=== PATIENT | female | born 1935 | race Caucasian/White ===

== ENCOUNTER 2018-02-08 17:47 | Inpatient (IN) | payer MEDICARE, OTHER ==
[2018-02-08] MEDS ORDERED: Fentanyl 100 MCG/2 ML VIAL ONE ×2 (17:52→20:10)
[2018-02-08 18:51] LABS: #Lymphocytes 2.5 thou/uL (1.20-3.40); #Monocytes 1.8 thou/uL (0.11-0.59); #Neutrophils 12.9 thou/uL (1.40-6.50); %Basophils 0.3 % (0.0-1.0); %Eosinophils 5.4 % (0.0-10.0); %Lymphocytes 13.8 % (21.0-51.0); %Monocytes 9.8 % (0.0-10.0); %Neutrophils 70.8 % (42.0-75.0); Hemoglobin 15.4 g/dL (12.0-16.0); Mean Corpuscular HGB CONC 32.7 g/dL (32.0-36.0); Mean Corpuscular Hemoglobin 28.4 pg (27.0-31.0); Mean Corpuscular Volume 86.9 fl (81.0-99.0); Mean Platelet Volume 6.9 fL (7.4-10.4); Platelet Count 270 thou/uL (130-400); RBC Distribution Width 13.5 % (11.5-14.5); Red Blood Cell (RBC) Count 5.42 mill/uL (4.20-5.40); White Blood Cell (WBC) Count 18.2 thou/uL (4.8-10.8)
[2018-02-08 19:11] LABS: Anion Gap 16 mmol/L (10-20); BUN (Urea Nitrogen) 18 mg/dL (9.8-20.1); Calc. Creatinine Clearance 0 mL/min (70-130); Calcium 9.9 mg/dL (7.8-10.44); Carbon Dioxide 21 mmol/L (23-31); Chloride 101 mmol/L (98-107); Estimated GFR-MDRD 31; Glucose 119 mg/dL (83-110); Potassium 4.3 mmol/L (3.5-5.1); Sodium 134 mmol/L (136-145)
[2018-02-08 19:17] LABS: CKMB 2.4 ng/mL (0-6.6); Troponin I 0.013 ng/mL (< 0.028)
--- NOTE | 2018-02-08 20:11 | RAD ---
RADIOGRAPH PELVIS ONE VIEW: Date: 02-08-18 Time: 6:23 a.m. History: 82-year-old female status post fall resulting in right hip pain. FINDINGS: There is a right femoral neck fracture, with at least a half-bone width superolateral displacement of the distal fragment. No dislocation. The pelvic ring appears to be grossly intact. IMPRESSION: Acute, traumatic, displaced, closed, transverse fracture of the right femoral neck. POS: MARICARMEN
--- NOTE | 2018-02-08 20:29 | RAD ---
RADIOGRAPH CHEST 1 VIEW: HISTORY: 82-year-old female for pre-operative evaluation. FINDINGS: There are no air space densities, pulmonary edema, pneumothorax, or cardiomegaly. The lateral costop hrenic angles are sharp. There are chronic appearing prominent interstitial markings. There is no int erval change overall since 07-17-11. IMPRESSION: 1. No acute cardiopulmonary findings. 2. Chronic pulmonary interstitial changes. blair POS: MARICARMEN
--- NOTE | 2018-02-08 20:51 | CON ---
DATE OF CONSULTATION: 02/08/2018 CHIEF COMPLAINT: Right hip pain. HISTORY OF PRESENT ILLNESS: Ms. Bowman is an 82-year-old female who was at work today at a [employer]. She tripped on the leg of a high chair and fell. She landed on her right side. She had imme diate pain in the hip. She was unable to ambulate. She was taken by EMS to the emergency department . X-rays revealed a displaced right femoral neck fracture. She was then comfortable in the emergenc y department. She has received pain medication. No other complaints or problems. She did not strik e her head or lose consciousness. PAST MEDICAL HISTORY: The patient reports having a recent cardiac murmur identified. This has not b een fully worked up. She had flu this season. No other chronic medical problems she reports. PAST SURGICAL HISTORY: No recent surgeries in the last several years. ALLERGIES: No known drug allergies. FAMILY MEDICAL HISTORY: Noncontributory. REVIEW OF SYSTEMS: Positive for right hip pain. PHYSICAL EXAMINATION: VITAL SIGNS: Stable. She is afebrile. She is normotensive. GENERAL: She is alert and oriented, lying supine, in no apparent distress. HEENT: Normocephalic, atraumatic. RESPIRATORY: Breathing comfortably. ABDOMEN: Soft, nontender, nondistended. MUSCULOSKELETAL: The patient's right leg is shortened and externally rotated posture. She has pain with hip motion. She is neurovascularly intact in the foot and ankle. She has a palpable dorsalis p eric pulse. IMAGES: X-rays of the pelvis demonstrated displaced right femoral neck fracture. IMPRESSION: Right displaced femoral neck fracture in an elderly female. PLAN: At this point, the patient will need hemiarthroplasty of the hip. We will plan for this tomor row. She will be n.p.o. at midnight. She will have pain control. She will have appropriate medical optimization prior to surgical intervention. She is in good health and very active, so it is unlike ly that she needs any further significant treatment prior to surgery. Risks have been reviewed as we ll surgical plan with the patient and her family. They want to proceed.
[2018-02-08 20:58] LABS: Bilirubin Negative (Negative); Blood, Urine Small (Negative); Clarity CLEAR (Clear); Glucose, Urine (Dipstick) Negative (Negative); Leukocyte Negative (Negative); Nitrite Negative (Negative); Protein, Urine (Dipstick) Trace mg/dL (Neg-Trace); Specific Gravity, Urine 1.009 (1.002-1.036); Urobilinogen 0.2 mg/dL (0.2-1.0); pH, Urine 7.5 (5.0-9.0)
[2018-02-08 21:00] LABS: Bacteria/HPF None Seen HPF (None Seen); Hyaline Casts/LPF 0-3 HYALINE CAST LPF (0-3 Hyaline); RBC/HPF None Seen HPF (0-3); Squamous Epithelial None Seen HPF (0-3); WBC/HPF None Seen HPF (0-3)
[2018-02-08] MEDS ORDERED: Morphine 4 MG/ML VIAL SLOW IVP PRN (21:00)
[2018-02-08] MEDS ORDERED: Ondansetron ODT 4 MG TAB PO PRN (21:00)
[2018-02-08] MEDS ORDERED: Ondansetron HCl/PF 4 MG/2 ML Vial IVP PRN (21:00)
[2018-02-08] MEDS ORDERED: Dextrose 50% Abboject 50 ML SYRINGE SLOW IVP PRN (21:00)
[2018-02-08] MEDS ORDERED: Dextrose 5% in Water 1,000 ML IV PRN (21:00)
[2018-02-08] MEDS ORDERED: hydrALAZINE 20 MG/ML VIAL SLOW IVP PRN (21:00)
[2018-02-08] MEDS ORDERED: traMADol HCl 50 MG TAB PO PRN (21:00)
[2018-02-08 21:11] VITALS: BMI 20.6
[2018-02-08] MEDS: Sodium Chloride 0.9% 1,000 ML IV SCH (22:07)
[2018-02-08] MEDS: Acetaminophen 500 MG TAB PO SCH (22:08)
[2018-02-08] MEDS: traMADol HCl 50 MG TAB PO SCH (22:08)
[2018-02-09] MEDS ORDERED: CEFAZOLIN/Water 2 GM/20 ML SYRINGE SLOW IVP SCH ×2 (00:01→09:00)
[2018-02-09] MEDS: Famotidine/PF 20 mg/2ml Vial SLOW IVP SCH ×2 (00:03→23:27)
--- NOTE | 2018-02-09 01:57 | HP ---
DATE OF ADMISSION: 02/08/2018 ATTENDING PHYSICIAN: Dr. Pascual. TRAUMA ACTIVATION: Not applicable. HISTORY OF PRESENT ILLNESS: Alessandra Bowman is an 82-year-old female, who presented to [facility] with a chief complaint of right hip pain status post mechanical fall. 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 The patient had immediate onset of right lower extremity pain and was unable to ambulate. She was evaluated in the emergency room and found to have an isolated hip fracture. She denies head trauma or loss of consciousness. Orthopedic Surgery was notified and Trauma Services was asked to admit. Upon my evaluation, the patient has a chief complaint of right hip pain, but states that it is tolerable at this time. ALLERGIES: PENICILLIN. HOME MEDICATIONS: Include sertraline 100 mg p.o. daily, lisinopril 10 mg p.o. daily, amlodipine 2.5 mg p.o. daily, propranolol extended release 120 mg p.o. at bedtime, simvastatin 20 mg p.o. at bedtime, aspirin 81 mg p.o. at bedtime, vitamin D3 p.o. daily, Flexeril 10 mg 1 tab p.o. p.r.n., Xanax 0.25 mg 1 tab p.o. p.r.n. PAST MEDICAL HISTORY: Significant for hypertension, hyperlipidemia, and spinal tumor status post chemotherapy in 2000. PAST SURGICAL HISTORY: Significant for nephrectomy, exploratory laparotomy associated with her cancer, appendectomy, cholecystectomy, and bilateral cataract surgery. SOCIAL HISTORY: The patient works at a daycare. Endorses occasional glass of wine. Denies tobacco or illicit drug use. FAMILY HISTORY: Noncontributory. REVIEW OF SYSTEMS: Ten-point review of systems is performed and negative except as indicated in the HPI. PHYSICAL EXAMINATION: VITAL SIGNS: Blood pressure 159/99, pulse 91, respirations 20, O2 sat 93% on room air, pain 5/10, temperature 98.1. GENERAL: Well developed elderly female, in no acute distress, resting in bed. HEAD: Normocephalic, atraumatic. EYES: Pupils are PERRL. Extraocular movements are intact. NECK: Supple. Trachea is midline. CHEST: Atraumatic, nontender to palpation, normal work of breathing, symmetric rise. LUNGS: Clear to auscultation bilaterally. CARDIOVASCULAR: Regular rate and rhythm, no obvious murmurs, rubs or gallops. GASTROINTESTINAL: Abdomen is soft, nontender, nondistended. Bowel sounds are positive. GENITOURINARY: Jones catheter is in place with clear yellow urine. MUSCULOSKELETAL: Back exam is reported as being within normal limits. Bilateral upper extremities within normal limits. Left lower extremity within normal limits. Right lower extremity held in the flexed position secondary to pain. Range of motion limited secondary to pain. She is neurovascularly intact distal side of her injury. Pulses are 2+ bilaterally. NEUROLOGIC: GCS is 15. No focal deficit is noted. LABORATORY FINDINGS: WBC 18.2, hemoglobin 15.4, hematocrit 47.1, platelet count 270. Sodium 134, potassium 4.3, chloride 101, carbon dioxide 21, BUN 18, creatinine 1.59, glucose 119. Troponin 0.013. EKG with sinus rhythm, read as having age indeterminate septal infarct and PACs. RADIOGRAPHIC FINDINGS: Official read is pending. Chest x-ray shows coarse interstitial markings, but no acute cardiopulmonary process. Pelvic x-ray demonstrates a right intertrochanteric hip fracture. ASSESSMENT: 1. Status post mechanical fall. 2. Right hip fracture. 3. Acute traumatic pain. 4. History of hypertension. 5. Chronic kidney disease, at baseline. The patient has a history of nephrectomy. PLAN: Admit to Trauma Services. Perioperative pain management. I have discussed this case with Dr. Lima from Orthopedic Surgery who plans for operative intervention tomorrow. Postoperative PT and OT. Inpatient rehabilitation consult as the patient is from home and ambulates independently typically. Gastritis and DVT prophylaxis as appropriate. Reconcile home medications. Plans for admission were discussed with the patient and family at bedside. All questions were answered at the time of this dictation. Trauma attending has been notified of admission. KATHIA
[2018-02-09] MEDS: traMADol HCl 50 MG TAB PO SCH ×4 (03:04→22:28)
[2018-02-09] MEDS: Acetaminophen 500 MG TAB PO SCH ×4 (03:04→22:28)
[2018-02-09 04:51] LABS: #Lymphocytes 1.6 thou/uL (1.20-3.40); #Monocytes 0.8 thou/uL (0.11-0.59); #Neutrophils 9.9 thou/uL (1.40-6.50); %Basophils 0.3 % (0.0-1.0); %Eosinophils 0.2 % (0.0-10.0); %Lymphocytes 12.8 % (21.0-51.0); %Monocytes 6.2 % (0.0-10.0); %Neutrophils 80.5 % (42.0-75.0); Hemoglobin 13.5 g/dL (12.0-16.0); Mean Corpuscular HGB CONC 32.7 g/dL (32.0-36.0); Mean Corpuscular Hemoglobin 28.8 pg (27.0-31.0); Mean Corpuscular Volume 88.1 fl (81.0-99.0); Mean Platelet Volume 7.3 fL (7.4-10.4); Platelet Count 235 thou/uL (130-400); RBC Distribution Width 13.2 % (11.5-14.5); Red Blood Cell (RBC) Count 4.68 mill/uL (4.20-5.40); White Blood Cell (WBC) Count 12.3 thou/uL (4.8-10.8)
[2018-02-09 05:10] LABS: Anion Gap 12 mmol/L (10-20); BUN (Urea Nitrogen) 17 mg/dL (9.8-20.1); Calc. Creatinine Clearance 29 mL/min (70-130); Calcium 9.3 mg/dL (7.8-10.44); Carbon Dioxide 24 mmol/L (23-31); Chloride 100 mmol/L (98-107); Estimated GFR-MDRD 40; Glucose 136 mg/dL (83-110); Magnesium 1.8 mg/dL (1.6-2.6); Phosphorus 3.8 mg/dL (2.3-4.7); Potassium 3.9 mmol/L (3.5-5.1); Sodium 132 mmol/L (136-145)
[2018-02-09] MEDS ORDERED: Magnesium 2 GM/NS 0.9% 100 ML 2 GM in Premix Bag 1 BAG IVPB SCH (06:15)
[2018-02-09] MEDS ORDERED: Metoprolol Tartrate 5 MG/5 ML VIAL IVP PRN (06:15)
[2018-02-09] MEDS ORDERED: Amiodarone In Dextrose 200 ML IVPB SCH (06:30)
[2018-02-09] MEDS ORDERED: Amiodarone HCl 150 MG, Admixture Fee 1 EACH in Dextrose 5% in Water 100 ML IVPB SCH ×3 (06:30)
[2018-02-09] MEDS ORDERED: Amiodarone HCl 450 MG, Admixture Fee 1 EACH in Dextrose 5% in Water 250 ML IVPB SCH ×3 (06:30)
[2018-02-09] MEDS ORDERED: Amiodarone HCl 150 MG in Dextrose 5% in Water 100 ML IVPB SCH ×2 (06:30)
[2018-02-09] MEDS ORDERED: Metoprolol Tartrate 25 MG TAB PO SCH (09:15)
[2018-02-09 11:00] LABS: ALT (SGPT) 11 U/L (8-55); AST (SGOT) 19 U/L (5-34); Alkaline Phosphatase 103 U/L (40-150); Bilirubin, Direct 0.4 mg/dL (0.1-0.3); Bilirubin, Total 0.9 mg/dL (0.2-1.2); Magnesium 2.6 mg/dL (1.6-2.6); Potassium 3.9 mmol/L (3.5-5.1); Protein, Total 7.2 g/dL (6.0-8.3)
--- NOTE | 2018-02-09 11:51 | CON ---
DATE OF CONSULTATION: 02/09/2018 HISTORY OF PRESENT ILLNESS: The patient is a pleasant 82-year-old woman with no known cardiac history who was recently noted to have an irregular heart rhythm. The patient is followed by her oncologist for a history of a spinal cord tumor. The patient was noted to have an irregular heart rhythm. The patient was sent for cardiac evaluation. The patient denies having any palpitations. The patient denies having any chest discomfort or dyspnea. The patient still works and does significant physical activity without any difficulty. She denies having any history of chest pain or dyspnea on exertion. The patient denies have any PND or orthopnea.She presented after falling with a hip fracture. PAST MEDICAL HISTORY: 1. Spinal cord tumor. 2. Hypertension. 3. History of nephrectomy. 4. Dyslipidemia. PAST SURGICAL HISTORY: Cholecystectomy, appendectomy, nephrectomy, exploratory laparotomy. FAMILY HISTORY: Strong family history of heart disease. MEDICATIONS ON ADMISSION: Sertraline 100 daily, lisinopril 10 daily, Norvasc 2.5 daily, Zocor 20 daily, propranolol 120 bedtime, aspirin 81 daily,and Xanax 0.25. REVIEW OF SYSTEMS: Ten-point system otherwise unremarkable. No history of easy bruising or bleeding, bright red blood per rectum or hematuria. PHYSICAL EXAMINATION: GENERAL: Thin woman in no acute distress. VITAL SIGNS: Blood pressure 135/85. NECK: Showed no jugular venous distention. LUNGS: Clear to auscultation. HEART: Irregular rate and rhythm, normal S1, S2, no murmurs. ABDOMEN: Nondistended. EXTREMITIES: Showed no edema. SKIN: Warm and dry. NEUROLOGIC: Nonfocal. VASCULAR: Radial pulses are 2+. LABORATORY: Sodium 132, potassium 3.9, chloride 100, bicarbonate 24, BUN 17, creatinine is 1.27. White blood cell count 12.3, hemoglobin 13.5, hematocrit 41.2, platelets are 235. Initial EKG revealed normal sinus rhythm with occasional PACs with poor R-wave progression. Follow up EKG revealed rapid atrial fibrillation with no acute ST-T wave changes. IMPRESSION: 1. Right hip fracture. 2. Paroxysmal atrial fibrillation. 3. Hypertension. 4. Dyslipidemia. 5. History of nephrectomy. This patient presents with paroxysmal atrial fibrillation and a hip fracture. From a cardiac standpoint,I would recommend she be placed on amiodarone. She was initially in sinus rhythm, and hopefully can convert back to normal sinus back. From a cardiac standpoint, she appears to be acceptable risk for undergoing hip surgery. Prior to her fall, she was able to walk at least 4 mets without difficulty. Would recommend she proceed with surgery as soon as her heart rate can be controlled. We will check the patient's echocardiogram during this hospitalization. The patient will need long-term anticoagulation. I will follow this patient with you through her hospitalization. KATHIA
--- NOTE | 2018-02-09 12:04 | PRG ---
DATE OF SERVICE: 02/09/2018 SUBJECTIVE: Ms. Bowman is an 82-year-old pleasant woman who is status post ground level fall yesterd ay. The patient was admitted with a normal sinus rhythm. Overnight developed acute paroxysmal atrial fibrillation with rapid ventricular response. The patien t denies any chest pain, dyspnea or syncope. She reports adequate pain control. PHYSICAL EXAMINATION: VITAL SIGNS: This morning includes blood pressure 156/94, pulse 127 and irregular. Respiratory rate is 15, temperature is 98.4 degrees Fahrenheit, oxygen saturation 93% on room air. HEENT: Reveals normocephalic and atraumatic. Pupils are equal, round, and reactive to light and acc ommodation. Extraocular muscles are intact bilaterally. She has no sclerae icterus present. NECK: She has no jugular venous distention noted. CARDIOVASCULAR: Heart reveals irregular rate with tachycardia. LUNGS: Clear to auscultation bilaterally. Breathing regular and unlabored. ABDOMEN: Soft, nontender, nondistended. EXTREMITIES: Reveals 2+ radial and pedal pulses bilaterally. She has no ankle edema present. LABORATORY DATA: Today includes a CBC with 12,200 white blood cells, hemoglobin and hematocrit stabl e at 15.5 and 41.2 respectively. Platelet count is normal at 235,000. Metabolic profile: Sodium 13 2, potassium is 3.9, chloride is 100, bicarbonate 24, BUN is 17, creatinine is 1.27, glucose 136. Ma gnesium is 1.8, phosphorus is 3.8. IMPRESSION: 1. Post-admission day #1, status post ground level fall with right hip fracture. 2. Acute paroxysmal atrial fibrillation with rapid ventricular response. 3. Acute hypokalemia. 4. Acute hypomagnesemia. PLAN: 1. Correct abnormal electrolytes. 2. The patient has been started on amiodarone. She was previously on propranolol at home as one of her medications. We will therefore start her on Lopressor starting at the low dose today at 12.5 mg p.o. and will hopefully increase this as her blood pressure tolerates. 3. A 2D echocardiogram today reveals a normal left ventricular function with ejection fraction of 40 -50%. 4. No wall motion abnormalities noted. 5. She is to be seen today by Cardiology and hopefully undergo repair of the right hip fracture. The above findings and plan discussed with the patient who indicates understanding of information giv en. I answered her questions.
[2018-02-09] MEDS ORDERED: Morphine 5 MG/ML SYRINGE SLOW IVP PRN ×2 (12:21→12:37)
[2018-02-09] MEDS: Sodium Chloride 0.9% 1,000 ML IV SCH ×2 (13:54→22:58)
[2018-02-09] MEDS ORDERED: Propofol 200 MG/20 ML VIAL ONE (14:36)
[2018-02-09] MEDS ORDERED: PHENYLEPHRINE-NS 100 MCG/ML 10 ML SYRINGE ONE (14:36)
[2018-02-09] MEDS ORDERED: Lidocaine 1% PF 5 ML VIAL ONE (14:36)
[2018-02-09] MEDS ORDERED: Ondansetron HCl/PF 4 MG/2 ML Vial ONE (14:36)
[2018-02-09] MEDS ORDERED: Glycopyrrolate 0.2 MG/ML 5 ML SYRINGE ONE (14:36)
[2018-02-09] MEDS ORDERED: CEFAZOLIN/Water 2 GM/20 ML SYRINGE ONE (18:20)
[2018-02-09] MEDS ORDERED: Fentanyl 250 MCG/5 ML VIAL ONE (18:55)
[2018-02-09] MEDS ORDERED: Promethazine HCl 25 MG/ML VIAL IM PRN (20:25)
[2018-02-09] MEDS ORDERED: Promethazine HCl 25 MG/ML VIAL SLOW IVP PRN (20:25)
[2018-02-09] MEDS ORDERED: Ondansetron HCl/PF 4 MG/2 ML Vial IVP PRN (20:25)
--- NOTE | 2018-02-09 20:37 | EKG ---
Test Reason : Blood Pressure : / mmHG Vent. Rate : 132 BPM Atrial Rate : 132 BPM P-R Int : 000 ms QRS Dur : 072 ms QT Int : 294 ms P-R-T Axes : 000 055 069 degrees QTc Int : 435 ms Atrial fibrillation with rapid ventricular response Nonspecific ST abnormality Abnormal ECG When compared with ECG of 31-AUG-2001 10:06, Atrial fibrillation has replaced Sinus rhythm Vent. rate has increased BY 46 BPM Questionable change in QRS duration Confirmed by NIESHA ROBERTS, DR. Johns ([id number]) on 02/09/2018 8:37:21 PM Referred By: MENDOZA Confirmed By:DR. Nat SCHERER MD
--- NOTE | 2018-02-09 20:54 | RAD ---
RADIOGRAPH RIGHT HIP 2 VIEWS: DATE: 02/09/18 TIME: 8:22 p.m. HISTORY: 82-year-old female with acute, traumatic right femoral neck displaced fracture. COMPARISON: Single view of pelvis of 02/08/18. FINDINGS: The femoral head and neck have been surgically resected, and replaced by metallic prostheses. The fem oral stem extends to the junction between the proximal and middle thirds of the femoral diaphysis. La teral skin jeevan. Subcutaneous emphysema. IMPRESSION: Status post right hip replacement arthroplasty. POS: MARICARMEN
--- NOTE | 2018-02-09 21:44 | OP ---
DATE OF OPERATION: 02/09/2018 OPERATION: Right hip bipolar hemiarthroplasty. PREOPERATIVE DIAGNOSIS: Right femoral neck fracture. POSTOPERATIVE DIAGNOSIS: Right femoral neck fracture. COMPLICATIONS: None. ESTIMATED BLOOD LOSS: 250 mL SURGEON: Cy Lima M.D. PROTECTIVE SERVICE SPECIALIST: Portillo Duckworth PA-C. ANESTHESIA: General. IMPLANTS: DePuy Synthes size 6 basic press-fit stem with a 47 mm bipolar shell, +5 femoral head. INDICATIONS: Ms. Bowman is an 82-year-old female who fell. She sustained a fracture of the right fe moral neck. She was indicated for hemiarthroplasty of the hip to restore function and promote early mobilization. Risks have been reviewed in detail. She has elected to proceed with the operation. DESCRIPTION OF PROCEDURE: Ms. Bowman was identified in the preoperative holding area. Her correct e xtremity was marked. She was carried to the operating room. She was positioned supine. General ane sthesia was induced. A multidisciplinary timeout was performed. The right lower extremity was prepp ed and draped in sterile fashion. We began the procedure with posterior approach to the hip. We dis sected down through the subcutaneous tissues to the fascia. The fascia was incised. At this point, we exposed the short external rotators of the hip. These were subperiosteally divided from the proxi mal femur. We performed a capsulotomy. At this point, we removed the broken femoral head and neck. We performed a new osteotomy. The soft tissues and bony fragments were cleared. We then prepared t he femur. After entering the intramedullary canal, we reamed up to a size 6 reamer, followed by broaching seque ntially to a size 6. We trialed off this a +5 femoral head was appropriate for stability and range o f motion. There was no evidence of instability. We accepted this trial and placed our final compone nts after irrigation. We thoroughly irrigated and then impacted our final components appropriately. Again, we tested stability. Next, we began closure. The capsule and external rotators were closed with a #5 Ethibond suture. We followed this with #2 Vicryl, followed by subcutaneous and skin closur e. A sterile dressing was applied. The patient was taken to the recovery room in good condition wit hout complication.
[2018-02-09] MEDS ORDERED: HYDROcodone/Acetaminophen 7.5/325 mg Tablet PO PRN ×2 (22:12)
[2018-02-09] MEDS ORDERED: Aspirin 81 mg Enteric Coated Tablet PO SCH (22:15)
[2018-02-09] MEDS: Atorvastatin Calcium 10 MG TAB PO SCH (22:30)
[2018-02-09] MEDS ORDERED: Famotidine 20 MG TAB PO SCH (22:45)
[2018-02-10] MEDS: traMADol HCl 50 MG TAB PO SCH ×4 (02:59→21:20)
[2018-02-10] MEDS: Acetaminophen 500 MG TAB PO SCH ×4 (02:59→21:17)
[2018-02-10] MEDS: CEFAZOLIN/Water 2 GM/20 ML SYRINGE SLOW IVP SCH ×2 (03:01→10:33)
--- NOTE | 2018-02-10 03:40 | PRG ---
DATE OF SERVICE: 02/10/2018 SUBJECTIVE: Patient is status post right bipolar hemiarthroplasty today. On my examination, the jose antonio rodríguez had just arrived back to the telemetry unit. The patient had an episode of paroxysmal atrial fi brillation and was placed on amiodarone. There were no issues during the operative procedure. Upon arrival to the telemetry unit, the patient's vital signs were stable. She was awake and would answer simple questions and follow very simple commands. She remained on the amiodarone drip. Her pain wa s controlled. OBJECTIVE: VITAL SIGNS: Stable. GENERAL: Patient is resting comfortably, awake and response appropriately and follow simple commands . LUNGS: Clear to auscultation. HEART: Irregularly irregular rhythm consistent with most likely still being in her atrial fibrillati on, though at the time of my exam, she was not hooked to her monitor yet. ABDOMEN: Soft, flat, and nontender. EXTREMITIES: Neurovascularly intact. Her postop dressing is clean, dry, and intact. ASSESSMENT: 1. Status post ground level fall. 2. Right hip fractures status post right hip hemiarthroplasty. PLAN: Will be to continue amiodarone per Cardiology, pain management, pulmonary toilet, gastritis, a nd mechanical DVT prophylaxis. Physical and occupational therapy postoperatively and we will continu e supportive care.
[2018-02-10 05:58] LABS: #Basophils 0.1 thou/uL (0.0-0.2); #Eosinphils 0.1 thou/uL (0.0-0.7); #Lymphocytes 2.1 thou/uL (1.20-3.40); #Monocytes 1.9 thou/uL (0.11-0.59); %Basophils 0.3 % (0.0-1.0); %Eosinophils 0.8 % (0.0-10.0); %Neutrophils 75.9 % (42.0-75.0); Hemoglobin 11.7 g/dL (12.0-16.0); Mean Corpuscular HGB CONC 32.7 g/dL (32.0-36.0); Mean Corpuscular Hemoglobin 29.1 pg (27.0-31.0); Mean Corpuscular Volume 88.8 fl (81.0-99.0); Mean Platelet Volume 7.3 fL (7.4-10.4); Platelet Count 208 thou/uL (130-400); RBC Distribution Width 13.5 % (11.5-14.5); Red Blood Cell (RBC) Count 4.01 mill/uL (4.20-5.40); White Blood Cell (WBC) Count 17.2 thou/uL (4.8-10.8)
[2018-02-10] MEDS ORDERED: Amlodipine 5 MG TAB PO SCH ×2 (09:00)
[2018-02-10] MEDS ORDERED: Lisinopril 10 MG TAB PO SCH (09:00)
[2018-02-10] MEDS ORDERED: Metoprolol Tartrate 25 MG TAB PO SCH (09:00)
[2018-02-10] MEDS ORDERED: Aspirin 81 mg Enteric Coated Tablet PO SCH (09:00)
[2018-02-10] MEDS: Metoprolol Tartrate 25 MG TAB PO SCH ×2 (09:30→21:20)
[2018-02-10 09:37] LABS: Anion Gap 11 mmol/L (10-20); BUN (Urea Nitrogen) 15 mg/dL (9.8-20.1); Calc. Creatinine Clearance 33 mL/min (70-130); Calcium 8.8 mg/dL (7.8-10.44); Carbon Dioxide 23 mmol/L (23-31); Chloride 103 mmol/L (98-107); Estimated GFR-MDRD 45; Glucose 91 mg/dL (83-110); Magnesium 1.8 mg/dL (1.6-2.6); Phosphorus 3.3 mg/dL (2.3-4.7); Potassium 4.3 mmol/L (3.5-5.1); Sodium 133 mmol/L (136-145)
[2018-02-10] MEDS: Sodium Chloride 0.9% 1,000 ML IV SCH (10:36)
[2018-02-10] MEDS ORDERED: Famotidine 20 MG TAB PO SCH (21:00)
--- NOTE | 2018-02-10 21:03 | PRG ---
DATE OF SERVICE: 02/10/2018 ATTENDING PHYSICIAN: Dr. Robby Castro. SUBJECTIVE: Ms. Bowman is an 82-year-old female who suffered a ground level fall on 02/08/2018. She was admitted for a right hip fracture. She is now postop day #1 status post open reduction internal fixation. Prior to the operation, the patient developed paroxysmal atrial fibrillation. She was tr ansferred to the telemetry unit. Cardiology was consulted. They recommended an amiodarone drip, whi ch she continues to be on. Since the operation, the patient has been stable on the floor with a good rate control. OBJECTIVE: VITAL SIGNS: Blood pressure 91/58, pulse 100, temperature 97.7, respirations 18, O2 sat 96% on room air. GENERAL APPEARANCE: Patient is an elderly adult female, in no acute distress. HEENT: Normocephalic and atraumatic. RESPIRATORY: Her breath sounds are clear to auscultation bilaterally. CARDIOVASCULAR: She has a regular rate. She is somewhat tachycardic. ABDOMEN: Soft, nontender, nondistended. EXTREMITIES: She is neurovascularly intact x4. LABORATORY DATA: Hematology: WBC 17.2, hemoglobin 11.7, hematocrit 35.6, platelets 208. Chemistry: Sodium 133, potassium 4.3, chloride 103, bicarbonate 23, BUN 15, creatinine 1.14, glucose 91, calci um 8.8, phosphorus 3.3, magnesium 1.8. IMAGING: There are no images to review today. ASSESSMENT: 1. Status post ground level fall. 2. Right hip fracture, status post open reduction and internal fixation. 3. Acute traumatic pain. 4. Paroxysmal atrial fibrillation. 5. History of hypertension. 6. Chronic kidney disease. PLAN: 1. The patient has been stable postoperatively. We will stop her amiodarone drip and start her on m etoprolol. Per Cardiology recommendations, the patient will begin metoprolol 25 mg b.i.d. 2. Continue to optimize pain control. Encourage pulmonary toileting. 3. The patient will need mobilization with PT and OT. Case management is following for possible dis charge to rehabilitation. 4. Transfer to the surgical floor today. This patient was seen and examined along with Dr. Robby Lewis on rounds who agrees with the assessm ent and plan.
[2018-02-10] MEDS: Apixaban 5 MG TAB PO SCH (21:17)
[2018-02-10] MEDS: Atorvastatin Calcium 10 MG TAB PO SCH (21:20)
[2018-02-10] MEDS ORDERED: Cyclobenzaprine 10 MG TAB PO PRN (21:56)
--- NOTE | 2018-02-10 22:25 | PRG ---
DATE OF SERVICE: 02/10/2018 SUBJECTIVE: The patient is postop day #1 from a right hip bipolar hemiarthroplasty, status post grou nd level fall. The patient had an episode of paroxysmal atrial fibrillation, which she was started o n amiodarone and spent her first days in the hospital on the telemetry unit. The patient is currentl y converted and rate controlled, was moved to the surgical floor. Currently, has no complaints. Her pain is controlled. She is tolerating a diet. OBJECTIVE: VITAL SIGNS: Temperature is 98.4, heart rate 96, blood pressure 122/77, respirations 18, and oxygen saturation is 97% on room air. GENERAL: The patient is resting comfortably without complaints. Breathing is nonlabored. HEART: Regular rate and rhythm. ABDOMEN: Soft, flat, nontender with active bowel sounds. EXTREMITIES: Neurovascularly intact. Postoperative dressing is clean, dry, and intact. ASSESSMENT: 1. Status post ground level fall. 2. Status post open reduction internal fixation of right hip fracture. PLAN: We will continue supportive care, physical and occupational therapy and await final placement decision.
[2018-02-11] MEDS: traMADol HCl 50 MG TAB PO SCH ×2 (02:52→08:39)
[2018-02-11] MEDS: Acetaminophen 500 MG TAB PO SCH ×3 (02:52→15:24)
[2018-02-11 05:16] LABS: Anion Gap 8 mmol/L (10-20); BUN (Urea Nitrogen) 18 mg/dL (9.8-20.1); Calc. Creatinine Clearance 28 mL/min (70-130); Calcium 8.5 mg/dL (7.8-10.44); Carbon Dioxide 27 mmol/L (23-31); Chloride 103 mmol/L (98-107); Estimated GFR-MDRD 38; Glucose 99 mg/dL (83-110); Magnesium 1.9 mg/dL (1.6-2.6); Phosphorus 3.1 mg/dL (2.3-4.7); Potassium 4.1 mmol/L (3.5-5.1); Sodium 134 mmol/L (136-145)
[2018-02-11 05:50] LABS: Band 6 % (5-11); Eosinophils 1 % (0-10); Hemoglobin 9.5 g/dL (12.0-16.0); Lymphocytes 14 % (21-51); MDiff Complete? YES; Mean Corpuscular HGB CONC 33.3 g/dL (32.0-36.0); Mean Corpuscular Hemoglobin 29.3 pg (27.0-31.0); Mean Platelet Volume 7.3 fL (7.4-10.4); Metamyelocyte 3 % (0-0); Monocytes 15 % (0-10); Myelocyte 2 % (0-0); Neutrophil 59 % (42-75); PLT Morphology Comment Appears Adequate; Platelet Count 174 thou/uL (130-400); RBC Distribution Width 13.6 % (11.5-14.5); RBC Morphology Normal; Red Blood Cell (RBC) Count 3.25 mill/uL (4.20-5.40); White Blood Cell (WBC) Count 12.9 thou/uL (4.8-10.8)
[2018-02-11] MEDS: Apixaban 5 MG TAB PO SCH (08:36)
[2018-02-11] MEDS: Metoprolol Tartrate 25 MG TAB PO SCH (08:36)
[2018-02-11] MEDS ORDERED: Magnesium 2 GM/NS 0.9% 100 ML 2 GM in Premix Bag 1 BAG IVPB SCH (09:00)
[2018-02-11] MEDS ORDERED: traMADol HCl 50 MG TAB PO SCH (09:00)
[2018-02-11] MEDS ORDERED: Metoprolol Tartrate 25 MG TAB PO SCH (09:00)
[2018-02-11 12:00] VITALS: BP 114/66; TEMP 97.6
== END 2018-02-11 16:36 | disposition swing bed (61) | DRG 470 ==
LOC: ERS 17:47 → SURG A 20:50 → 2SE 02-09 09:43 → SJJU 02-10 19:41
PROVIDERS: ADMIT Specialist; ATTEND Specialist
PROC: 0SRR0JA Replacement of Right Hip Joint, Femoral Surface with Synthetic Substitute, Uncemented, Open Approach (ICD-10-PCS; principal; 2018-02-09)
DX: S72.141A Displaced intertrochanteric fracture of right femur, initial encounter for closed fracture (principal); I48.0 Paroxysmal atrial fibrillation; E83.42 Hypomagnesemia; E78.5 Hyperlipidemia, unspecified; I10 Essential (primary) hypertension; W01.190A Fall on same level from slipping, tripping and stumbling with subsequent striking against furniture, initial encounter; Y93.F9 Activity, other caregiving; Y92.210 Daycare center as the place of occurrence of the external cause; Y99.0 Civilian activity done for income or pay; Z88.0 Allergy status to penicillin; Z79.82 Long term (current) use of aspirin; Z92.21 Personal history of antineoplastic chemotherapy; G89.11 Acute pain due to trauma; E87.6 Hypokalemia; Z90.5 Acquired absence of kidney; D49.7 Neoplasm of unspecified behavior of endocrine glands and other parts of nervous system
CPT/HCPCS: 36415; 36416; 51702; 71045; 72170; 80048; 80076; 81003; 81015; 82553; 83735; 84100; 84443; 84484; 85025; 93005; 93010; 93306; 96374; 96376; J2270; G0390; G8978-GP-CK; G8979-GP-CI; G8987-GO-CL; G8988-GO-CI; J0282; J2001; J2405; J2704; J3010; J3475; J3480; J7050; J7070; J7620

== ENCOUNTER 2020-07-12 13:58 | Inpatient (IN) | payer MEDICARE, OTHER ==
[~2020-07-12 13:58] MED LIST: Iopamidol-370 76% 500 ML 1 ML ONE
[2020-07-12 15:33] VITALS: BMI 22.8
[2020-07-12] MEDS ORDERED: Acetaminophen 325 MG TAB PO PRN (16:52)
[2020-07-12] MEDS ORDERED: Senokot S 8.6-50 MG TAB PO PRN (16:52)
[2020-07-12] MEDS ORDERED: Ondansetron ODT 4 MG TAB PO PRN (16:52)
--- NOTE | 2020-07-12 16:57 | PDOC.FPRHP ---
- History of Present Illness Chief Complaint: N/V/D History of Present Illness: Pt is a 84 y/o F with PMHx of Afib, HTN, Chronic hyponatremia,s/p l nephrectomy , CKD stage 3 to 4, remote hx of follicular lymphoma, HLD, neuropathy, anxiety/ depression, osteoporosis, generalized weakness who presents as a transfer from [facility] where she was staying in a swing bed after surgery for R femur shaft fracture, postoperatively she has been nonweightbearing. A few days ago patient started to have nausea and poor appetite and her labs showed increasing leukocytosis in the setting of anemia and thrombocytosis. Her bclx x2 was neg. Uclx grew proteus and gram negative bacteria. Incision site grew bacillus. Pt was started on meropenem for this. She had CXR and abdominal xray which were negative. 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 Today patient states that she does not feel well at all, that her nausea is worse and began having emesis today upon arriving to our hospital. She had not noticed any blood, it was the color of the ensure she was drinking. She was having abdominal pain in her lower part of her stomach. She noticed that she began to have diarrhea yesterday but was unsure how many episodes she had had. She admitted to some SOB but denied CP. - Allergies/Adverse Reactions Allergies Allergy/AdvReac Type Severity Reaction Status Date / Time amoxicillin Allergy Verified 06/30/20 00:59 Penicillins Allergy Verified 02/10/20 22:03 - Home Medications Medication Instructions Recorded Confirmed Type Cholecalciferol (Vitamin D3) 5,000 unit PO DAILY 02/09/18 07/12/20 History [Vitamin D3] Sertraline HCl 100 mg PO DAILY 02/09/18 07/12/20 History Atorvastatin Calcium [Lipitor] 10 mg PO HS tab 02/11/18 07/12/20 Rx Acetaminophen [Tylenol Regular 650 mg PO Q6HR tab 07/03/20 07/12/20 Rx Strength] Apixaban [Eliquis] 2.5 mg PO BID tab 07/03/20 07/12/20 Rx Cyclobenzaprine [Flexeril] 5 mg PO TIDPRN PRN tab 07/03/20 07/12/20 Rx Ferrous Sulfate [Feosol] 325 mg PO BID-WM tab 07/03/20 07/12/20 Rx Polyethylene Glycol 3350 [Miralax] 17 gm PO DAILY pk 07/03/20 07/12/20 Rx traMADol HCl [Ultram] 50 mg PO Q12HR tab 07/03/20 07/12/20 Rx Acetaminophen [Tylenol] 650 mg PO Q4HR PRN 07/12/20 07/12/20 History Famotidine [Pepcid] 20 mg PO DAILY 07/12/20 07/12/20 History Meropenem [Merrem] 500 mg IVPB Q12HR 07/12/20 07/12/20 History Metoprolol Tartrate [Lopressor] 25 mg PO BID 07/12/20 07/12/20 History Midodrine 5 mg PO Q8HR 07/12/20 07/12/20 History Ondansetron [Zofran ODT] 4 mg PO Q6HR PRN 07/12/20 07/12/20 History Sennosides/Docusate Sodium 1 tab PO BID PRN 07/12/20 07/12/20 History [Senokot S] - History PMHx: A-fib, HTN, chronic hyponatremia, orthostatic hypotension, iron deficiency anemia, follicular lymphoma PSHx: - nephrectomy at age 16, does not know why - cholecystectomy, appendectomy, ex lap FHx: Father: heart disease Social: - Denies smoking, drinking, drugs. - Review of Systems General: reports: fatigue. denies: fever/chills, weight/appetite/sleep changes , night sweats Eyes: denies: vision changes ENT: denies: nasal congestion, rhinorrhea Respiratory: reports: shortness of breath. denies: cough, congestion Cardiovascular: denies: chest pain, palpitation, edema, orthopnea Gastrointestinal: reports: nausea, vomiting, diarrhea, abdominal pain. denies: constipation Genitourinary: denies: incontinence, dysuria, polyuria Skin: denies: rashes, lesions, jaundice Musculoskeletal: denies: pain, tenderness, stiffness, swelling, arthritis/ arthralgias Neurological: denies: numbness, syncope, seizure Psychological: reports: anxiety. denies: depression - Vital signs BP:127/60 HR: 105 RR: 20 Tmax: 98.3 F Pox: 97% on RA Wt: 62 kg - Physical Exam Constitutional: other -Constitutional: acutely ill, appears clammy/diaphoretic and pale HEENT: normocephalic and atraumatic, no scleral icterus, grossly normal hearing , MMM, oropharynx clear -HEENT: pale conjunctiva Neck: supple Chest: no-tender to palpation, no lesions Heart: normal S1/S2, pulses present, no edema -Heart: irregular rate and rhythm, HR in 130s Lungs: CTAB, no rales/rhonchi, no wheezing Abdomen: soft, bowel sounds present, no masses/distention -Abdomen: tenderness to palpation in periumbilical area, no rebound tenderness, no peritoneal signs Musculoskeletal: normal structure -Musculoskeletal: R thigh to ankle brace, 2+ ankle edema on R, trace pitting edema on L Neurological: no focal deficit Skin: no rash/lesions, no jaundice -Skin: skin pale appearing Heme/Lymphatic: no purpura, no petechia, other Psychiatric: good judgment and insight, intact recent and remote memory -Psychiatric: appears anxious FMR H&P: Results - Labs Result Diagrams: 07/12/20 17:39 FMR H&P: A/P - Plan 84 yo F admitted from [facility] swing bed for acute leukocytosis, nausea, and overall worsening condition. ##Leukocytosis - Large rise in WBC over past 3-4 days from normal range to > 60. 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 - Recent R hip surgery w/ hip prosthesis in place: grew bacillus species - CBC, CMP, lactic acid, procal - Mg, Phos - Peripheral smear - consider further imaging of CT with contrast after improving kidney function, see plan below ##Gastritis - Pt presenting with Nausea, Vomiting, Abdominal pain, and Diarrhea - Lipase already performed, wnl - DDX: colitis, cdiff, acute GI bleed, mesenteric ischemia since pt's pain is out of proportion of exam, at this time not considering SBO due to patient's physical exam - zofran for nausea, morphine for pain - In setting of abx use, diarrhea, will order cdiff assay - Gastric occult blood - ARDEN performed ##A-fib, now with RVR - EKG, troponin - HR running in 130s to 150s - diltiazem drip - continue home meds, continuous tele ##URIEL on CKD - 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 Likely continue broad coverage but de- escalate to cefepime and vancomycin. . Dispo: admit to inpatient telemetry for workup. ELOS > 48H. FMR H&P: Upper Level - Pertinent history Transfer from [facility] by Dr. Newton. Patient was getting PT/OT due to R femoral fracture s/p repair and subsequent washout. Patient started feeling bad a few days ago so her PCP checked labs and noticed increasing WBC up to [address] over [address] Newton called Dr. Varela who thought past cancer history was unrelated to her WBC. Lamar talked to Dr. Bradford who recommended CT of abdomen/pelvis/chest but due to her history of 1 kidney, radiology wanted her GFR to be greater than 35 prior to performing a scan with contrast. On arrival to our facility, received page that pt was nauseous and vomiting. Patient was complaining of abdominal pain as well. Denied radiation of pain anywhere. Complained of feeling feverish and then chills. Denies dysuria, cough , vomiting blood, diarrhea. Rates her pain as severe. - Pertinent findings PEx: VS: see analysis intern note, afebrile, BP wnl. Gen: clammy, diaphoretic, pale HEENT: conjunctival pallor, PEERLA, redness beneath eyes bilaterally, no LAD, no thyromegaly, mucous membranes somewhat dry. Resp: CTAB, no adventitious sounds CV: irregular, tele w/ a-fib at rate 111 MSK: no midline tenderness along cervical/thoracic/lumbar spine Abd: moderate epigastric pain, normoactive BS Extremities: R thigh to ankle brace, 2+ ankle edema on R, trace pitting edema on L Psych: appears distressed, hx of anxiety - Plan Date/Time: 07/12/20 1657 84 yo F admitted from [facility] swing bed for acute leukocytosis, nausea, and overall worsening condition: Leukocytosis Pallor - Large rise in WBC over past 3-4 days from normal range to > 60. 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 Nausea, Vomiting, Abdominal pain - Gastric occult blood - appeared brown in color but this may be due to ensure shake pt drank earlier today. - other possibility to consider is mesenteric ischemia since pt's pain is out of proportion of exam. Abdomen was not distended but SBO not excluded given patient's extensive abdominal surgical history. KUB two days ago was normal - zofran for nausea - morphine for pain - if tolerating PO, may continue tramadol she was taking at swing bed URIEL vs URIEL on CKD - LR at 150 mL/hr - trend creatinine and hopefully tomorrow can order scan w/ contrast - if creatinine does not respond in next few days, consider CT scan without contrast to obtain information Chronic conditions: A-fib: continue home meds, continuous tele HTN: continue home meds but caution in setting of orthostasis Orthostatic hypotension: home meds Chronic hyponatremia: trend BMPs Hx of follicular lymphoma Hx of iron deficiency anemia: trend CBCs Code: DNR Fluids: LR at 125 mL/hr VTE PPx: already on eliquis GI PPx: pantoprazole IV Abx: came from facility on meropenem. Likely continue broad coverage but de- escalate to cefepime and vancomycin. Will discuss this choice w/ attending. Dispo: admit to inpatient telemetry for workup. ELOS > 48H. ILety, PGY2, have evaluated this patient and agree with findings/ plan as outlined by analysis intern resident. Pertinent changes/additions are listed here. Addendum - Attending - Attending Attestation Date/Time: 07/12/202031 I personally evaluated the patient and discussed the management with Dr. Meade and Dr Clinton. I agree with the History, Examination, Assessment and Plan documented above with any addition or exceptions noted below. Since her arrival she has also developed AFib with RVR. IV Fluid boilus and Diltiazem initiated. On exam I find that her abdominal pain is out of proportion to her exam, mild peritoneal sigs such as pain with bumping the bed, and gently shaking her belly. And these fingins along with leukocytosis, and elevated lactate have me concerned for a mesenteric artery occlusion. My DDx also include peptic ulcer perforation, colitis, ileus, and SBO. I personally discuss the situation with the radiologist, Dr Lamar noyola the patient's daughter Lena, who communicated on behalf of her two siblings. I am not of the opinion hat Mrs. Bowman has the cognitive capacity to give informed consent for a CTA and possible surgery base don my conversation with her. Lena understands and believes her mother would want to have the CTA to know what the diagnosis is, and then consider surgery thereafter. Lena did confirm the patients desire for DNR code status.
[2020-07-12] MEDS ORDERED: Morphine 2 MG/ML VIAL SLOW IVP SCH (17:00)
[2020-07-12] MEDS ORDERED: Ondansetron PF 4 MG/2 ML Vial IVP PRN (17:08)
[2020-07-12] MEDS ORDERED: Lactated Ringer's 1,000 ML IV SCH ×2 (17:15→18:30)
[2020-07-12 17:57] LABS: Hemoglobin 11.6 g/dL (12.0-16.0); Mean Corpuscular HGB CONC 30.4 g/dL (32.0-36.0); Mean Corpuscular Hemoglobin 28.1 pg (27.0-31.0); Mean Corpuscular Volume 92.4 fL (78.0-98.0); Platelet Count 832 thou/uL (130-400); RBC Distribution Width 15.1 % (11.5-14.5); Red Blood Cell (RBC) Count 4.13 mill/uL (4.20-5.40); White Blood Cell (WBC) Count 69.4 thou/uL (4.8-10.8)
[2020-07-12 18:14] LABS: Anisocytosis SLIGHT = 6-15 cells (100X) (0-5/hpf); Band 6 % (5-11); Burr Cells SLIGHT = 2-5 cells (100X) (0-1/hpf); Lymphocytes 1 % (21-51); MDiff Complete? YES; Monocytes 9 % (0-10); Neutrophil 84 % (42-75); Platelet Morphology Comment Appears Increased; Polychromasia SLIGHT = 2-3 cells (100X) (0-2/hpf); Reflex for Review?? YES; Toxic Granulation SLIGHT; Vacuoles MODERATE
[2020-07-12] MEDS ORDERED: Morphine 4 MG/ML VIAL SLOW IVP PRN (18:25)
--- NOTE | 2020-07-12 18:50 | RAD ---
ONE VIEW CHEST: 07/12/20 HISTORY: Possible infection. Leukocytosis. COMPARISON: 07/10/20. Cardiac silhouette and pulmonary vasculature are within normal limits. Mild chronic lung changes are seen. No new area of consolidation or pleural fluid is identified. Vascular calcifications again seen in the thoracic aorta. No interval change from prior study. IMPRESSION: Stable chest without an acute cardiopulmonary process. POS: ANGELAC
[2020-07-12] MEDS ORDERED: Diltiazem 125 MG in Sodium Chloride 0.9% 100 ML IVPB SCH (19:00)
[2020-07-12 19:56] LABS: Troponin I 0.015 ng/mL (< 0.028)
[2020-07-12 20:28] LABS: Phosphorus 4.7 mg/dL (2.3-4.7)
[2020-07-12] MEDS: Morphine 2 MG/ML VIAL SLOW IVP PRN (20:57)
[2020-07-12] MEDS: Apixaban 2.5 MG TAB PO SCH (20:58)
[2020-07-12] MEDS: Metoprolol Tartrate 50 MG TAB PO SCH (20:58)
[2020-07-12] MEDS: Midodrine HCl 5 MG TAB PO SCH (20:58)
[2020-07-12] MEDS ORDERED: Meropenem 500 MG VIAL IVPB SCH (21:00)
[2020-07-12] MEDS ORDERED: Famotidine 20 MG TAB PO SCH (21:00)
--- NOTE | 2020-07-12 22:19 | CT ---
CT arteriogram abdomen and pelvis with IV contrast and 3-D imaging HISTORY: Abdominal pain. COMPARISON: 06/25/2011. FINDINGS: Minimal right pleural fluid. Mild dependent bibasilar lung atelectasis. Reflux of fluid in the stomach into the lower esophagus. Small amount of free fluid throughout the abdomen and pelvis. Peripheral branching gas density is present within the left liver lobe portal veins. Small pocket of gas also within the main portal vein. There is a small irregular hyperdense focus within the medial segment left liver lobe which appears to be due to right IV contrast through the recanalized umbilica l vein. The portal vein is not expanded with clot. Visceral arteries of the abdomen are patent. There is calcification at the origin of the left renal a rtery. Mild narrowing at the upper superior mesenteric artery with good flow peripherally. The right kidney is surgically absent. Common duct measures up to 0.8 cm. Gallbladder not visible. Possibly surgically absent. Biliary diste ntion likely related to chronic gallbladder absence. Urinary bladder is incompletely distended. Metallic spray artifact emanates from right hip prosthesis . There is prominent circumferential wall thickening and hyper enhancement of the mucosa involving the entirety of the colon and rectum. Gas distended loops of small bowel within the upper mid abdomen are present with extensive gas within the rivera of these abnormal loops. No free air within the abdomen. Prominent degenerative changes throughout the lumbar spine. IMPRESSION : Portal venous gas with pneumatosis of dilated small bowel within the anterior mid abdomen. Presumed i schemia.. 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 Abnormal appearance of the colon favored to represent infectious colitis. Minimal right pleural fluid. Status post right nephrectomy. Mild distention of the biliary system favored to be related to chronic absence of the gallbladder. Findings were called to Dr. Ventura at 2209 hours. Code CR.
[2020-07-12] MEDS: Meropenem 500 MG in Sodium Chloride 0.9% 100 ML IVPB SCH (22:27)
[2020-07-12] MEDS: Lactated Ringer's 1,000 ML IV SCH (22:27)
--- NOTE | 2020-07-12 23:08 | PDOC.EVN ---
Event Note - Event Note Event Note: CT revealed portal venous gas with pneumatosis of dilated small bowel within anterior mid abdomen, presumed ischemia. Mild stenosis of the proximal superior mesenteric artery but no thrombosis. Abnormal appearance of the colon favored to represent infectious colitis. Dr. Ventura spoke with Dr. Donovan about the case for him to evaluate if she is a surgical candidate.
--- NOTE | 2020-07-12 23:42 | PDOC.BPN ---
- Brief Progress Note Reviewed the CT Angio with Dr Hernández. Discussed findings with Alessandra, and her daughter, Lena, and Dr Jimenez of Gen Surgery. Alessandra is an operative candidate. However, Alessandra feels strongly about not being on a ventilator and wants to see family. She is not willing to have surgery and understands that this means certain in a matter of hours to days. Her daughter confirms that Alessandra has expressed her desire to not be on a ventilator in the past. She is at peace about her not having surgery. We will continue therapy for what we can treat such as the colitis with antibiotics, and dehydration with IV fluids. We will control pain with morphine prn. Her life expectancy is hours to days. She can transition to hospice care.
[2020-07-13] MEDS: Morphine 2 MG/ML VIAL SLOW IVP PRN (00:29)
[2020-07-13 01:06] LABS: Hemoglobin 13.5 g/dL (12.0-16.0)
[2020-07-13] MEDS: Midodrine HCl 5 MG TAB PO SCH (05:12)
--- NOTE | 2020-07-13 06:22 | PDOC.FM ---
- Subjective Subjective: Pt lying flat in bed this AM. Pt's daughter Reina and her sister Leonora at bedside, were able to stay with patient overnight. Pt was not c/o of pain overnight, was having some SOB as noticed by daughter. Otherwise, she has remained resting. Overnight, she has been in Afib, occasionally jumping to RVR, with resolvement with two seperate doses of 15mg IVP of diazepam, once at 21:00 and 2:00. Earlier this morning HR was in 130s, with SBP of 130. When reviewing her telemetry strip after seeing her, HR in low 100s. - Objective Vital Signs & Weight: Vital Signs (12 hours) Temp Pulse Resp BP Pulse Ox 07/13/20 04:00 97.7 F 88 23 H 153/67 H 94 L 07/12/20 19:25 97.8 F 149 H 18 126/63 96 Weight Weight 62.188 kg Result Diagrams: 07/13/20 00:57 Phys Exam - Physical Examination clammy, diaphoretc, pale Neck: supple Respiratory: clear to auscultation bilateral Cardiovascular: no rub, gallop at this moment irregular rate and rhythm tele strip has shown afib/flutter with HR ranging from 100-130s Gastrointestinal: soft, positive bowel sounds tender, mild peritoneal signs Musculoskeletal: pulses present Neurological: moves all 4 limbs Deviation from normal: sleepy, ocassional moaning, able to sit up and have sips of water Skin: no rash Dx/Plan - Plan Plan: 84 yo F admitted from [facility] swing bed for acute leukocytosis, nausea, vomiting, and diarrhea with overall worsening condition. ##Leukocytosis - Large rise in WBC over past 3-4 days from normal range to > 60. 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 mild stenosis of superior mesenteric artery. Findings were reviewed with pt and her daughter and Dr. Donovan of general surgery. Pt is not willing to have surgery understands that her prognosis is very poor. Daughter had confirmed that this aligns with patients wishes and desire to not be on a ventilator in the past. She is at peace about pt not having surgery. For this reason, we will continue to treat with abx and fluid resusitate and control pain with morphine. ##C. 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 PCP: Lamar Dispo: pt declined surgery and understands what this means for her prognosis. she is at peace with her decision as is her family. we will continue abx, pain control, and fluid resusitation. in talking with daughter Reina this AM, she reaffirms decisions she told night team last night that she would like home today with home hospice. consults put in this AM. Addendum - Attending - Attending Attestation Date/Time: 07/13/20 5135 I personally evaluated the patient and discussed the management with the team. I agree with the History, Examination, Assessment and Plan documented above with any addition or exceptions noted below. Discussed prognosis in detail with family who continue to want hospice.
[2020-07-13] MEDS: Lactated Ringer's 1,000 ML IV SCH ×2 (06:36→09:35)
[2020-07-13] MEDS ORDERED: Pantoprazole 40 MG VIAL IVP SCH (09:00)
[2020-07-13] MEDS: Metoprolol Tartrate 50 MG TAB PO SCH (09:34)
[2020-07-13] MEDS: Apixaban 2.5 MG TAB PO SCH (09:34)
--- NOTE | 2020-07-13 11:01 | PQF ---
CLINICAL DOCUMENTATION CLARIFICATION FORM: Dear Dr. Nat GARCIA Date / Time: 07/13/20 1036, 07/16/2020 0940 Please exercise your independent, professional judgment in responding to the clarification form. Clinical indicators are provided on the bottom of this form for your review. Please check appropriate box(es): [x ] Sepsis due to: C.DIFF COLITIS WITH PNEUMATOSIS INTESTINALIS [ ] Sepsis not due to : C.DIFF COLITIS WITH PNEUMATOSIS INTESTINALIS [ ] Septic Shock [ ] Localized infection without sepsis [ ] SIRS due to non-infectious process (please specify etiology) [ ] with organ dysfunction [ ] without organ dysfunction [ ] Other diagnosis [ ] Unable to determine In addition, please specify: Present on Admission (POA): [ x ] Yes [ ] No [ ] Unable to determine For continuity of documentation, please document condition throughout progress notes and discharge summary. Thank You. To be completed by CDI/Coding staff for physician review: CLINICAL INDICATORS - SIGNS / SYMPTOMS / LABS / RESULTS AND LOCATION IN MR 07/12 LACTIC ACID 2.5 > 3.0 07/12 WBC 69.4 07/12 PULSE 149, RESPIRATIONS 23 07/12 EVENT NOTE (RON) ABNORMAL APPEARANCE OF THE COLON FAVORED TO REPRESENT INFECTIOUS COLITIS. 07/13 PN (SELLI) LEUKOCYTOSIS- LARGE RISE IN WBC OVER PAST 3-4 DAYS, CT SHOWED PORTAL VENOUS GAS WITH PNEUMATOSIS OF DILATED SMALL BOWEL WITHIN ANTERIOR MILD ABDOMEN, MILD STENOSIS OF SUPERIOR MESENTERIC ARTERY. RISK FACTORS / RESULTS AND LOCATION IN MR Advanced age (84), RECENT SURGERY - RT HIP WITH HIP PROSTHESIS IN PLACE : GREW BACILLUS SPECIES, C -DIFF COLITIS, ( PN/SELLI) 07/13 TREATMENTS / RESULTS AND LOCATION IN MR MEROPENEM IV ( 07/12 PRESENT) IV FLUIDS ( 07/12 PRESENT) CDS Signature: REBECCA BOX RN Phone #: [phone] Date:2019 This is a permanent part of the Medical Record [facility]
[2020-07-13 11:29] VITALS: BP 119/57; TEMP 97.7
--- NOTE | 2020-07-13 11:31 | PDOC.FMACP ---
Advance Care Planning - Problem (1) Afib Status: Acute Code(s): I48.91 - UNSPECIFIED ATRIAL FIBRILLATION (2) Palliative care encounter Status: Acute Code(s): Z51.5 - ENCOUNTER FOR PALLIATIVE CARE (3) CKD (chronic kidney disease) Status: Acute Code(s): N18.9 - CHRONIC KIDNEY DISEASE, UNSPECIFIED (4) Infectious colitis Status: Acute Code(s): A09 - INFECTIOUS GASTROENTERITIS AND COLITIS, UNSPECIFIED - Note Participants: patient, family, palliative care Summary: Palliative Care addressed Advanced Care Planning, opportunity to decline. The diagnosis, prognosis and goals of care were discussed. Appropriate forms and documentation to accomplish the goals of care were discussed. All questions were answered. Patient and family electing to transition to hospice. Confirmed DNAR status, OOHDNAR placed on chart for physician signature. CM notified of desire to transition to hospice and forgo any surgical intervention or other treatment measures and seek comfort measures to manage symptoms at end of life. Please also refer to Palliative Care notes in note section. Time Spent (mins): 20
[2020-07-13] MEDS: Meropenem 500 MG in Sodium Chloride 0.9% 100 ML IVPB SCH (12:23)
--- NOTE | 2020-07-13 16:01 | CON ---
DATE OF CONSULTATION: REASON FOR CONSULTATION: Leukemoid reaction and abdominal findings. HISTORY OF PRESENT ILLNESS: When I arrived at the room, her daughter was in the room and she had been made DNR and had been admitted to hospice care. The patient was admitted with decompensation after recent fracture of the right lower extremity, which had been repaired, and she developed inflammatory process in the abdominal area associated with gas in the portal vein, indicative of pylephlebitis as well as an inflammatory process in the in the bowel, which could be related to ischemic colitis with necrosis. The discussion was entertained with the patient and family and the patient decided against the aggressive measures, so she is going to be discharged home under hospice care. Job ID: [id number]
--- NOTE | 2020-07-13 16:45 | EKG ---
Test Reason : STAT Blood Pressure : / mmHG Vent. Rate : 132 BPM Atrial Rate : 144 BPM P-R Int : 000 ms QRS Dur : 090 ms QT Int : 324 ms P-R-T Axes : 000 033 087 degrees QTc Int : 480 ms Atrial fibrillation with rapid ventricular response Nonspecific ST and T wave abnormality Abnormal ECG No previous ECGs available Confirmed by DR. Carlos CARCAMO ([id number]) on 07/13/2020 4:45:09 PM Referred By: LILIAN Confirmed By:DR. Carlos CARCAMO
--- NOTE | 2020-07-13 20:42 | DIS ---
DATE OF ADMISSION: 07/12/2020 DATE OF DISCHARGE: 07/13/2020 RESIDENT: Ernestine Meade DO ADMITTING ATTENDING: Lenin Ventura MD DISCHARGE ATTENDING: Jose Howard MD CONSULT: RIGOBERT[facility]. PROCEDURES: CT of abdomen and pelvis 07/12 showed portal venous gas with pneumatosis of dilated small bowel within the anterior mid abdomen, presumed ischemia. 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 Abnormal appearance of the colon favored to represent infectious colitis. Minimal right pleural fluid. Status post right nephrectomy. Mild distention of the biliary system favored to be related to chronic absence of gallbladder. PRIMARY DIAGNOSES: Leukocytosis, Clostridium difficile colitis with pneumatosis intestinalis, atrial fibrillation with rapid ventricular response, and acute kidney injury on chronic kidney disease. SECONDARY DIAGNOSES: Hypertension, orthostatic hypotension, chronic hyponatremia, history of follicular lymphoma, and history of iron deficiency anemia. DISCHARGE MEDICATIONS: 1. Vitamin D 5000 units daily. 2. Sertraline 100 mg daily. 3. Atorvastatin 10 mg at bedtime. 4. Tylenol 650. 5. Flexeril 5. 6. MiraLAX 17 g. 7. Tramadol 50 mg. 8. Eliquis 2.5 mg b.i.d. 9. Ferrous sulfate 325 mg p.o. b.i.d. 10. Zofran 4 mg q.6 p.r.n. 11. Midodrine 5 mg p.o. q.8. 12. Lopressor 25 mg p.o. b.i.d. 13. Pepcid 20 mg p.o. daily. 14. Senokot one tab p.o. b.i.d. HISTORY OF PRESENT ILLNESS/HOSPITAL COURSE: This is an 84-year-old lady with a past medical history of atrial fibrillation, hypertension, chronic hyponatremia, chronic kidney disease, and remote history of follicular lymphoma, who presented as a transfer from [facility], where she had been staying in swing bed after surgery of her right femur shaft fracture. Postoperatively, she had been nonweightbearing. Few days prior to transfer, the patient started to have nausea and poor appetite. Her labs showed increasing leukocytosis in the setting of anemia and thrombocytosis. Her blood culture was negative x2. Urine cultures grew Proteus and gram-negative bacteria. She was started on meropenem for this. Incision site grew bacillus. She had a chest x-ray and abdominal x-ray, which were negative. Her kidney function declined from a creatinine of baseline 1.2-1.3 to 2 and for this reason on top of possessing one kidney, CT with contrast was not able to be performed until GFR improved. The patient stated that she was having worsening nausea and began to have emesis on day of arrival to our hospital. She did not notice any blood. She was having severe lower abdominal she began to have diarrhea the day prior. She admitted to some shortness of breath, but denied chest pain at that time. The patient's labs were remarkable for leukocytosis at 69.4, hemoglobin and hematocrit were 11.6 and 38.1. Lactic acid was 2.5 and micky to 3.0. Procalcitonin was negative. Troponins were negative. The patient had mild peritoneal signs. CT was done and showed the findings as above. General Surgery was consulted at this point. She was deemed to be a surgical candidate. However, the patient did not want to be intubated to go forward with surgery. She understood what this meant for her prognosis and that her life expectancy was short. Family was counseled and daughter stated that this decision aligned with the patient's wishes, she had told the family prior to being hospitalized. In extensive conversation with patient's PCP and family, the family agreed to plan of no surgery placed patient on hospice care. The patient was discharged home with hospice on day after admission. DISPOSITION: Guarded. DISCHARGE INSTRUCTIONS: Location, home with hospice. Diet, regular. Activity, as tolerated. Followup, none. [facility] ID[facility] [id number] [facility]
--- NOTE | 2020-07-17 13:13 | PQF ---
CLINICAL DOCUMENTATION CLARIFICATION FORM: Dear Dr. Ava MONTENEGRO Date / Time: 07/17/20 1310 Please exercise your independent, professional judgment in responding to the clarification form. Clinical indicators are provided on the bottom of this form for your review. Please check appropriate box(es): [ x ] Sepsis due to: C.DIFF COLITIS WITH PNEUMATOSIS INTESTINALIS [ ] Sepsis not due to : C.DIFF COLITIS WITH PNEUMATOSIS INTESTINALIS [ ] Septic Shock [ ] Localized infection without sepsis [ ] SIRS due to non-infectious process (please specify etiology) [ ] with organ dysfunction [ ] without organ dysfunction [ ] Other diagnosis [ ] Unable to determine In addition, please specify: Present on Admission (POA): [ x ] Yes [ ] No [ ] Unable to determine For continuity of documentation, please document condition throughout progress notes and discharge summary. Thank You. To be completed by CDI/Coding staff for physician review: CLINICAL INDICATORS - SIGNS / SYMPTOMS / LABS / RESULTS AND LOCATION IN MR 07/12 LACTIC ACID 2.5 > 3.0 07/12 WBC 69.4 07/12 PULSE 149, RESPIRATIONS 23 07/12 EVENT NOTE (VELASQUEZ) ABNORMAL APPEARANCE OF THE COLON FAVORED TO REPRESENT INFECTIOUS COLITIS. 07/13 PN (SELLI) LEUKOCYTOSIS- LARGE RISE IN WBC OVER PAST 3-4 DAYS, CT SHOWED PORTAL VENOUS GAS WITH PNEUMATOSIS OF DILATED SMALL BOWEL WITHIN ANTERIOR MILD ABDOMEN, MILD STENOSIS OF SUPERIOR MESENTERIC ARTERY. RISK FACTORS / RESULTS AND LOCATION IN MR Advanced age (84), RECENT SURGERY - RT HIP WITH HIP PROSTHESIS IN PLACE : GREW BACILLUS SPECIES, C -DIFF COLITIS, ( PN/SELLI) 07/13 TREATMENTS / RESULTS AND LOCATION IN MR MEROPENEM IV ( 07/12 PRESENT) IV FLUIDS ( 07/12 PRESENT) CDS Signature: REBECCA BOX RN Phone #: [phone] Date:07/17/2020 This is a permanent part of the Medical Record [facility]
== END 2020-07-13 14:32 | disposition hospice, home (50) | DRG 871 ==
LOC: 2NO 15:21
PROVIDERS: ADMIT Emergency Medicine; ATTEND Emergency Medicine
DX: A41.4 Sepsis due to anaerobes (principal); K55.069 Acute infarction of intestine, part and extent unspecified; N17.9 Acute kidney failure, unspecified; N18.4 Chronic kidney disease, stage 4 (severe); A04.72 Enterocolitis due to Clostridium difficile, not specified as recurrent; K55.1 Chronic vascular disorders of intestine; Z51.5 Encounter for palliative care; Z66 Do not resuscitate; I95.1 Orthostatic hypotension; D50.9 Iron deficiency anemia, unspecified; E78.5 Hyperlipidemia, unspecified; F41.9 Anxiety disorder, unspecified; F32.9 Major depressive disorder, single episode, unspecified; I48.91 Unspecified atrial fibrillation; E86.0 Dehydration; I12.9 Hypertensive chronic kidney disease with stage 1 through stage 4 chronic kidney disease, or unspecified chronic kidney disease; K63.89 Other specified diseases of intestine; Z90.5 Acquired absence of kidney; Z85.72 Personal history of non-Hodgkin lymphomas; Z88.1 Allergy status to other antibiotic agents; Z88.0 Allergy status to penicillin; Z79.899 Other long term (current) drug therapy; Z79.01 Long term (current) use of anticoagulants; Z90.49 Acquired absence of other specified parts of digestive tract
CPT/HCPCS: 36415; 71045; 74174; 82274; 83605; 83735; 84100; 84145; 84443; 84484; 85060; 87040; 87324; 87449; 93005; 93010; C9113; J2185; J2270; J3490; Q0162; Q9967